=== PATIENT | female | born 1960 | race Caucasian/White ===

== ENCOUNTER 2020-08-07 13:34 | Outpatient (CLI) | payer OTHER | END 2020-08-07 13:50 | disposition home or self-care (01) | LOC: TOM 13:34 | PROVIDERS: ATTEND Urology | DX: R10.84 Generalized abdominal pain (principal) ==

== ENCOUNTER → 2020-08-07 14:39 | Outpatient (CLI) | payer OTHER | END | disposition home or self-care (01) | LOC: LAB 14:39 | PROVIDERS: ATTEND Urology | DX: N30.00 Acute cystitis without hematuria (principal) ==

== ENCOUNTER 2021-01-11 11:14 | Outpatient (CLI) | payer OTHER | END 2021-01-11 12:00 | disposition home or self-care (01) | LOC: MRI 11:14 | PROVIDERS: ATTEND Otolaryngology Plastic Surgery within the Head & Neck | DX: G93.89 Other specified disorders of brain (principal) | CPT/HCPCS: 70553 ==